=== PATIENT | female | born 1975 | race African-American/Black ===

== ENCOUNTER → 2016-07-30 | Outpatient (CLI) | payer OTHER ==
[~2016-07-30] MED LIST: GABA600T2 PO; NARA2.5T8 PO; NATA300V2 IV; TOPI25TA32 PO; TOPI50TA4 PO; VENL37.56 PO
--- NOTE | 2016-07-30 15:09 | KCIC ---
PROCEDURE Thyroid ultrasound HISTORY Enlarged thyroid on CT, thyroid nodule COMPARISON None FINDINGS Multiple sonographic images of the thyroid gland are submitted. Right lobe measured 1.8 by 3.7 x 1.8 centimeters. Isthmus measured 0.2 centimeters. Left lobe measured 1.8 by 4.2 x 1.5 centimeters. There is mild heterogeneity of the thyroid parenchyma, no discrete nodule demonstrated. Vascularity is considered within normal limits. IMPRESSION 1. No discrete thyroid nodularity is identified, mild nonspecific heterogeneity of the thyroid parenchyma. Electronically signed by: Gurmeet Jerry MD (Jul 30, 2016 15:06:06)
== END | disposition home or self-care (01) ==
LOC: KCIC US 13:49
PROVIDERS: ATTEND Psychiatry & Neurology Neurology
DX: E04.9 Nontoxic goiter, unspecified (principal); G35 Multiple sclerosis
CPT/HCPCS: 76536